=== PATIENT | male | born 1975 | race Caucasian/White ===

== ENCOUNTER → 2016-08-21 | Outpatient (CLI) | payer OTHER ==
[~2016-08-21] MED LIST: ALEVE LIQCAPS PO
== END ==
LOC: COL.RAD 08:00
DX: Z85.47 Personal history of malignant neoplasm of testis (principal)
CPT/HCPCS: Q9967

== ENCOUNTER → 2017-03-23 | Outpatient (CLI) | payer OTHER | LOC: COL.RAD 08:00 | DX: Z85.47 Personal history of malignant neoplasm of testis (principal); K40.90 Unilateral inguinal hernia, without obstruction or gangrene, not specified as recurrent | CPT/HCPCS: J7050; Q9967 ==

== ENCOUNTER → 2018-05-28 | Outpatient (CLI) | payer OTHER ==
[2018-05-28 09:14] LABS: LACTATE DEHYDROGENASE 440 U/L (313-618)
[2018-05-28 09:52] LABS: HCG,QUANTITATIVE < 2 mIU/mL
== END ==
LOC: COL.LAB 08:17 → COL.RAD 08:17
PROVIDERS: Urology
DX: Z85.47 Personal history of malignant neoplasm of testis (principal)
CPT/HCPCS: Q9967

== ENCOUNTER 2019-01-27 10:25 | Day surgery (SDC) | payer OTHER ==
[~2019-01-27] VITALS: Ht 190.5 cm; Wt 95.0 kg
[2019-01-27 11:13] VITALS: BP 122/80; PULSE 62; TEMP 97.5
[2019-01-27] MEDS ORDERED: TYLENOL 500MG500 MG PO (14:47)
[2019-01-27] MEDS ORDERED: ROXICODONE 55 MG/TAB PO (14:50)
[2019-01-27 15:08] VITALS: BP 139/88; PULSE 78; TEMP 98.8
--- NOTE | 2019-01-27 15:08 | NUR ---
Patient arrives back to [facility] alert, reports pain under control, denies nausea. Patient monitor applied, vitals stable. Patient's spouse brought to bedside.
--- NOTE | 2019-01-27 15:20 | NUR ---
Patient given toast, water and soda at this time.
[2019-01-27 15:25] VITALS: BP 130/87; PULSE 82
--- NOTE | 2019-01-27 15:30 | NUR ---
Patient tolerates water, soda, toast and pudding without any nausea. Reports pain under control. Patient states he is feeling good and ready to go home at any time.
[2019-01-27 15:40] VITALS: BP 123/74; PULSE 65
--- NOTE | 2019-01-27 15:50 | NUR ---
Dismissal instructions gone over with patient and patient's spouse. Both verbalize understanding and all questions answered.
--- NOTE | 2019-01-27 16:00 | NUR ---
Patient and spouse leave thanking staff for services.
== END 2019-01-27 16:00 | disposition home or self-care (01) ==
LOC: SDCO 10:25
DX: K40.90 Unilateral inguinal hernia, without obstruction or gangrene, not specified as recurrent (principal); D17.6 Benign lipomatous neoplasm of spermatic cord; Z90.79 Acquired absence of other genital organ(s); Z85.47 Personal history of malignant neoplasm of testis
CPT/HCPCS: C1781; J0690; J1100; J1170; J1885; J2405; J2704; J3010; J7120